=== PATIENT | male | born 1950 ===

== ENCOUNTER 2019-04-14 08:45 | Inpatient (IN) | payer OTHER ==
[~2019-04-14] VITALS: Ht 182.9 cm; Wt 140.6 kg
[2019-04-14] MEDS ORDERED: COZAAR50 MG PO (10:43)
[2019-04-14] MEDS ORDERED: FORTAMET500 MG PO (10:43)
== END 2019-04-23 10:05 | disposition home or self-care (01) | DRG 707 ==
LOC: ADM 08:45 → EDSTATUS 08:45 → SURH 04-21 05:18 → O/R 04-21 05:18 → SURH 04-21 07:00
PROVIDERS: ADMIT Urology
PROC: 07BC0ZX Excision of Pelvis Lymphatic, Open Approach, Diagnostic (ICD-10-PCS; 2019-04-21)
PROC: 0VT00ZZ Resection of Prostate, Open Approach (ICD-10-PCS; principal; 2019-04-21 07:00)
DX: C61 Malignant neoplasm of prostate (principal); C77.5 Secondary and unspecified malignant neoplasm of intrapelvic lymph nodes; R97.21 Rising PSA following treatment for malignant neoplasm of prostate; I10 Essential (primary) hypertension; E11.9 Type 2 diabetes mellitus without complications; Z79.4 Long term (current) use of insulin

== ENCOUNTER 2019-11-18 07:19 | Outpatient (CLI) | payer OTHER ==
[~2019-11-18 07:19] MED LIST: COZAAR50 MG PO; FORTAMET500 MG PO
[2019-11-29] MEDS ORDERED: ERLEADA60 MG (13:39)
[2019-11-29] MEDS ORDERED: TAMS0.4C (13:39)
[2019-11-29] MEDS ORDERED: CHOLEST OFF PL450 MG (13:39)
== END 2019-11-18 07:26 | disposition home or self-care (01) ==
LOC: SONOGRAMA 07:19
PROVIDERS: ATTEND Urology
DX: N40.1 Benign prostatic hyperplasia with lower urinary tract symptoms (principal); C61 Malignant neoplasm of prostate

== ENCOUNTER → 2019-11-29 | Emergency (ER) | payer OTHER ==
[~2019-11-29] VITALS: Ht 177.8 cm; Wt 140.6 kg
[~2019-11-29] MED LIST changes: +CHOLEST OFF PL450 MG; +ERLEADA60 MG; +TAMS0.4C
== END | disposition left against medical advice (07) ==
LOC: ER 11:22
DX: U07.1 COVID-19 (principal); J12.89 Other viral pneumonia

== ENCOUNTER 2020-06-07 13:45 | Outpatient (CLI) | payer OTHER | END 2020-06-07 14:03 | disposition home or self-care (01) | LOC: SONOGRAMA 13:45 | PROVIDERS: ATTEND Urology | DX: N28.1 Cyst of kidney, acquired (principal); N40.1 Benign prostatic hyperplasia with lower urinary tract symptoms; R97.20 Elevated prostate specific antigen [PSA]; R33.8 Other retention of urine ==